=== PATIENT | female | born 1995 | race African-American/Black ===

== ENCOUNTER 2018-05-11 10:41 | Emergency (ER) | payer OTHER, SELFPAY ==
[2018-05-11 10:49] VITALS: BP 107/70; PULSE 70; RESP 14; TEMP 36.6; O2SAT 100; BMI 18.2
[2018-05-11 11:32] LABS: Add Manual Diff / Slide Review NO; Basophils Percent Auto 1.6 % (0-2); Eosinophils Percent Auto 0.6 % (2-4); Hematocrit 25.5 % (36-46); Hemoglobin 7.8 g/dL (12.0-16.0); Lymphocytes Percent Auto 41.4 % (25-40); Mean Corpuscular HGB Conc 30.6 % (30-36); Mean Corpuscular Hemoglobin 20.1 PG (26-34); Mean Corpuscular Volume 65.7 fL (80-100); Monocytes Percent Auto 9.9 % (3-14); Neutrophils Absolute Auto 1600 /uL (3000-5900); Neutrophils Percent Auto 46.5 % (50-75); Platelet Count 304 X10^3/uL (150-400); Red Blood Cell Count 3.89 X10^6/uL (4.0-5.2); Red Cell Distribution Width 17.7 % (11.6-14.8); White Blood Cell Count 3.5 X10^3/uL (4.5-11.0)
--- NOTE | 2018-05-11 11:36 | ED_ITS ---
HPI - Female Genitourinary General Chief complaint: Vaginal Bleeding Stated complaint: SPOTTING, UNCONTROLLABLE BLEEDING, NOT ON PERIOD Time Seen by Provider: 05/11/18 11:29 Source: patient Mode of arrival: ambulatory Limitations: no limitations History of Present Illness HPI Narrative: Patient is 23-year-old female who presents with vaginal bleeding. She had a felt finisher. From April 24 to April 28. His however yesterday she started bleeding again. 2 days ago she noticed some blood and spotting only when she wiped. She has minor discomfort with urination. However yesterday she has had quite heavy vaginal bleeding. Today she says it has slowed down. Last week she did notice some lightheadedness am bloating. She says that she does have a history of anemia. She and her are currently trying to get . However all test so far have been negative. Complaint: vaginal bleeding Related Data Previous Rx's Medication Instructions Recorded PNV [id number]-epa 1 cap PO DAILY #60 cap 05/11/18 cephalexin [Keflex] 500 mg PO TID #9 cap 05/11/18 Allergies Allergy/AdvReac Type Severity Reaction Status Date / Time No Known Drug Allergies Allergy Verified 05/11/18 10:53 Review of Systems Review of Systems All systems reviewed & are unremarkable except as noted in HPI and below Constitutional Denies chills, Denies fever(s), Denies lethargy and Denies weakness Cardiovascular Denies diaphoresis, Denies syncope, Denies rapid heart rate, Reports lightheadedness, Denies palpitations, Denies dyspnea and Denies dyspnea on exertion Respiratory Denies cough, Denies dyspnea, Denies dyspnea on exertion and Denies wheezing Gastrointestinal Gastrointestinal: Denies abdominal pain, Denies change in bowel habits, Denies diarrhea, Denies nausea and Denies vomiting Genitourinary Reports system reviewed and no additional complaints, except as docu Integumentary/Breasts Denies pruritus, Denies erythema, Denies rash and Denies wounds Neurologic Denies syncope and Denies weakness Endocrine Denies palpitations Allergic/Immunologic Denies wheezing [facility] Social History Smoking Status: Never smoker Exam Initial Vital Signs Initial Vital Signs: Vital Signs Temperature 97.8 F 05/11/18 10:49 Pulse Rate 70 05/11/18 10:49 Respiratory Rate 14 05/11/18 10:49 Blood Pressure 107/70 05/11/18 10:49 Pulse Oximetry 100 05/11/18 10:49 GENERAL: Well-appearing, well-nourished and in no acute distress. HEENT: Head atraumatic,EOMI, pupils reactive-mildly pale conjunctiva CARDIOVASCULAR: Regular rate and rhythm without murmurs, rubs or gallops. RESPIRATORY: Breath sounds equal bilaterally, no wheezes rales or rhonchi. ABDOMEN: Soft, nontender. Normoactive bowel sounds all 4 quadrants. No guarding or rebound. EXTREMITIES: Normal range of motion, no clubbing or edema. Neurovascularly intact NEUROLOGICAL: Alert and oriented x4.Normal gait and speech. Cranial nerves II through XII grossly intact. SKIN: Warm, dry, no laceration, no petechiae, no rashes or lesions. Course Orders Ordered: ED Orders 05/11/18 11:00 Test Urine Stat Urine Culture Stat Urine Microscopic Stat 05/11/18 11:12 Complete Blood Count AUTO DIFF Stat Comprehensive Metabolic Panel Stat Vital Signs - 8 hr 05/11/18 12:20 Pulse Rate 70 Respiratory Rate 12 Blood Pressure [Right Arm] 104/70 Pulse Oximetry 99 MDM - Female Genitourinary Medical Records Attestation: I reviewed the patient's medical records. Lab Data Attestation: I reviewed the patient's lab results. Result diagrams: 05/11/18 11:12 05/11/18 11:12 Lab Results 05/11/18 05/11/18 05/11/18 Range/Units 11:00 11:00 11:12 WBC 3.5 L (4.5-11.0) X10^3/uL RBC 3.89 L (4.0-5.2) X10^6/uL Hgb 7.8 L (12.0-16.0) g/dL Hct 25.5 L (36-46) % MCV 65.7 L (80-100) fL MCH 20.1 L (26-34) PG MCHC 30.6 (30-36) % RDW 17.7 H (11.6-14.8) % Plt Count 304 (150-400) X10^3/uL Neut % (Auto) 46.5 L (50-75) % Lymph % (Auto) 41.4 H (25-40) % [place] % (Auto) 9.9 (3-14) % Eos % (Auto) 0.6 L (2-4) % Baso % (Auto) 1.6 (0-2) % Neut # (Auto) 1600 L (4661-0330) /uL RBC Morphology Not Reportable Hypochromasia 2+ H Anisocytosis 1+ H Microcytosis 3+ H Sodium (137-145) mmol/L Potassium (3.4-5.1) mmol/L Chloride (98-107) mmol/L Carbon Dioxide (22-32) mmol/L BUN (7-17) mg/dL Creatinine (0.52-1.04) mg/dL Estimated GFR (>60) mL/min BUN/Creatinine Ratio (6-22) Glucose (70-100) mg/dL Calcium (8.4-10.2) mg/dL Total Bilirubin (0.2-1.3) mg/dL AST (14-36) IU/L ALT (9-52) IU/L Alkaline Phosphatase (38-126) U/L Total Protein (6.3-8.2) g/dL Albumin (3.5-5.0) g/dL Globulin (1.7-4.1) g/dL Albumin/Globulin Ratio (1.0-2.8) Urine RBC 10-30/hpf H (0-5/HPF) Urine WBC 0-1/hpf (0-5/HPF) Ur Squamous Epith Cells 5-10 /hpf H Amorphous Sediment 4+ Urine Bacteria Few (2-10) H (None) Ur Culture Indicated? Specimen cultured Micro UA Comment Not Reportable Urine Test Negative (Negative) 05/11/18 Range/Units 11:12 WBC (4.5-11.0) X10^3/uL RBC (4.0-5.2) X10^6/uL Hgb (12.0-16.0) g/dL Hct (36-46) % MCV (80-100) fL MCH (26-34) PG MCHC (30-36) % RDW (11.6-14.8) % Plt Count (150-400) X10^3/uL Neut % (Auto) (50-75) % Lymph % (Auto) (25-40) % [place] % (Auto) (3-14) % Eos % (Auto) (2-4) % Baso % (Auto) (0-2) % Neut # (Auto) (6663-7507) /uL RBC Morphology Hypochromasia Anisocytosis Microcytosis Sodium 140 (137-145) mmol/L Potassium 3.8 (3.4-5.1) mmol/L Chloride 107 (98-107) mmol/L Carbon Dioxide 23 (22-32) mmol/L BUN 11 (7-17) mg/dL Creatinine 0.60 (0.52-1.04) mg/dL Estimated GFR > 60.0 (>60) mL/min BUN/Creatinine Ratio 18.3 (6-22) Glucose 93 (70-100) mg/dL Calcium 9.1 (8.4-10.2) mg/dL Total Bilirubin 0.4 (0.2-1.3) mg/dL AST 13 L (14-36) IU/L ALT 13 (9-52) IU/L Alkaline Phosphatase 34 L (38-126) U/L Total Protein 7.6 (6.3-8.2) g/dL Albumin 4.3 (3.5-5.0) g/dL Globulin 3.3 (1.7-4.1) g/dL Albumin/Globulin Ratio 1.3 (1.0-2.8) Urine RBC (0-5/HPF) Urine WBC (0-5/HPF) Ur Squamous Epith Cells Amorphous Sediment Urine Bacteria (None) Ur Culture Indicated? Micro UA Comment Urine Test (Negative) MDM Narrative Medical decision making narrative: Patient is anemic it seems to be microcytic. I told her what her hemoglobin hematocrit were she says that found about right. She is not dizzy or lightheaded. I did not believe her anemia to be from her episode of bleeding yesterday. She is having some dysfunctional uterine bleeding of it seems to have slowed. I recommend outpatient follow-up along with repeat of her H&H. I discussed all findings with the patient, Education has been performed regarding treatment plan, diagnosis, warning signs and symptoms and all concerns have been addressed. Verbally agree with and understood all of the above. Discharge Plan Departure Patient Disposition: Home, Self-Care Clinical Impression: Anemia, UTI (urinary tract infection) Discharge Date/Time: 05/11/18 12:45 Interventions: ED Discharge Assessment Last Done: 05/11/18 12:45 Instructions: Urinary Tract Infection, Anemia Activity Restrictions/Additional Instructions: *You have been diagnosed with anemia and UTI *What to do: Will need to have repeat blood work and workup for anemia however this is likely always this way *Continue to take medications as directed - vitamins 1 once a day will also help with anemia -Keflex 1 tablet 3 times a day for 3 days At your request you're medications have been [facility] *Follow up with your primary care provider in 2-3 days *Return to ER if you should have dizziness, lightheadedness, increased bleeding more than 1 pad or tampon an hour or any new, worsening or concerning symptoms Prescriptions: New cephalexin [Keflex] 500 mg capsule 500 mg PO TID Qty: 9 RF: 0 PNV [id number]-epa 27 mg iron-800 mcg-228 mg capsule 1 cap PO DAILY Qty: 60 RF: 0
[2018-05-11 11:43] LABS: Amorphous Sediment Urine 4+; RBC Urine 10-30/HPF (0-5/HPF); Squamous Epithelial Cell Urine 5-10 /HPF; WBC Urine 0-1/HPF (0-5/HPF)
[2018-05-11 11:44] LABS: Bacteria Urine Few (2-10); Culture Indicated Urine Specimen Cultured
[2018-05-11 11:47] LABS: Alanine Aminotransferase 13 IU/L (9-52); Albumin 4.3 g/dL (3.5-5.0); Albumin Globulin Ratio 1.3 (1.0-2.8); Alkaline Phosphatase 34 U/L (38-126); Aspartate Aminotransferase 13 IU/L (14-36); BUN Creatinine Ratio 18.3 (6-22); Bilirubin Total 0.4 mg/dL (0.2-1.3); Blood Urea Nitrogen 11 mg/dL (7-17); Calcium 9.1 mg/dL (8.4-10.2); Carbon Dioxide 23 mmol/L (22-32); Chloride 107 mmol/L (98-107); Estimated Glomerular Filt Rate > 60.0 mL/min (>60); Globulin 3.3 g/dL (1.7-4.1); Glucose 93 mg/dL (70-100); HEMOLYSIS < 15 (0-50); Potassium 3.8 mmol/L (3.4-5.1); Sodium 140 mmol/L (137-145); Total Protein 7.6 g/dL (6.3-8.2)
[2018-05-11 11:54] LABS: Anisocytosis 1+; Hypochromasia 2+; Microcytosis 3+
[2018-05-11 12:20] VITALS: BP 104/70; PULSE 70; RESP 12; O2SAT 99
--- NOTE | 2018-05-11 12:43 | PC.NURSE ---
Discussed w/ patient importance of follow up. Pt is currently a pt of [facility] but has not established care yet. Called [facility] and left a message w/ clinic to call me.
--- NOTE | 2018-05-11 14:14 | PC.NURSE ---
Call back from Dr. Oswald office @ [facility]. Arranged appt for 05/16 @ [id number]. Pt called and aware / agreed. Dr. West's notes faxed to [phone]
[2018-05-11 18:44] LABS: Pregnancy Test Urine Negative (Negative)
== END 2018-05-11 12:45 | disposition home or self-care (01) ==
PROVIDERS: Emergency Provider Emergency Medicine
DX: N39.0 Urinary tract infection, site not specified (principal); D64.9 Anemia, unspecified
CPT/HCPCS: 36591; 80053; 81003; 81015; 81025; 85025; 87086; 99282; 99283

== ENCOUNTER 2018-08-15 13:04 | Emergency (ER) | payer OTHER, SELFPAY ==
[2018-08-15 13:25] VITALS: BP 122/84; PULSE 87; RESP 16; TEMP 36.8; O2SAT 98; BMI 18.2
[2018-08-15 14:28] VITALS: BP 111/75; PULSE 78; RESP 16; TEMP 36.7; O2SAT 98
[2018-08-15] MEDS: SODIUM CHLORIDE 0.9% 1,000 ML 150 ML IV (15:47)
--- NOTE | 2018-08-15 15:48 | ED.ABDPAIN ---
HPI - Abdominal Pain <UZIEL Mcdonnell - Last Filed: 08/15/18 22:11> General Chief Complaint: Abdominal Pain Stated Complaint: STOMACH PAIN FOR 3 WEEKS Time Seen by Provider: 08/15/18 19:10 Source: patient Mode of arrival: ambulatory Limitations: no limitations History of Present Illness HPI narrative: Healthy 23-year-old female that is a nonsmoker here for complaint of having suprapubic pain over the past 3 weeks. She also reports having vaginal discharge that is whitish since that timeframe. She denies any urinary symptoms. No fevers no chills. Positive p.o. intake. She denies any flank pain. She denies any stressors relievers of her pain. Denies any changes in her sexual partners she is in a a marriage and states is monogamous. she denies any other concerns or complaints. Related Data Home Medications Medication Instructions Recorded Confirmed ferrous sulfate 1 tab PO DAILY 08/15/18 08/15/18 Allergies Allergy/AdvReac Type Severity Reaction Status Date / Time No Known Drug Allergies Allergy Verified 08/15/18 13:31 Review of Systems <UZIEL Mcdonnell - Last Filed: 08/15/18 22:11> Constitutional Denies chills, Denies fever(s), Denies lethargy and Denies weakness Eyes Denies change in vision, Denies eye discharge, Denies irritation and Denies loss of vision Cardiovascular Denies chest pain, Denies irregular heart rhythm, Denies lightheadedness, Denies palpitations, Denies dyspnea, Denies dyspnea on exertion and Denies orthopnea Respiratory Denies cough, Denies dyspnea, Denies dyspnea on exertion and Denies wheezing Genitourinary Reports pelvic pain and Reports vaginal discharge Integumentary/Breasts Denies pruritus, Denies erythema, Denies rash and Denies wounds Neurologic Denies confusion, Denies loss of vision and Denies weakness Psychiatric Denies anxiety, Denies confusion, Denies depression, Denies homicidal ideation and Denies suicidal ideation Endocrine Denies palpitations Hematologic/Lymphatic Denies easy bruising Allergic/Immunologic Denies wheezing Exam <UZIEL Mcdonnell - Last Filed: 08/15/18 22:11> Initial Vital Signs Initial Vital Signs: Vital Signs Temperature 98.2 F 08/15/18 13:25 Pulse Rate 87 08/15/18 13:25 Respiratory Rate 16 08/15/18 13:25 Blood Pressure 122/84 08/15/18 13:25 Pulse Oximetry 98 08/15/18 13:25 Const General: cooperative and well developed Nutritional Appearance: well nourished Orientation: alert, awake, oriented x3 and not confused [facility] Mouth: oral mucosae normal and moist mucous membranes Eyes General: appearance normal, both eyes and all related structures Eyelids: eyelids normal Conjunctivae: conjunctivae normal Sclera: sclerae normal Pupils: PERRL EOM: EOM intact bilaterally Resp Effort & Inspection: normal respiratory effort, able to speak in complete sentences, no respiratory distress and no use of accessory muscles Auscultation: clear to auscultation bilaterally, no rales, no rhonchi and no wheezes Cardio Rate: regular rate Rhythm: regular rhythm Heart Sounds: no click, no gallops, no murmurs and no rubs GI Inspection: non-distended Palpation: soft, no hepatosplenomegaly, No guarding, No pulsatile mass and tender ( Suprapubic discomfort) Auscultation: normal bowel sounds General: No CVA tenderness Speculum Exam - Vagina: normal appearance of the vagina and abnormal vaginal discharge white Speculum Exam - Cervix: normal appearance of the cervix Bimanual Exam- Vagina & Uterus: normal bimanual exam Skin General: no rashes or lesions noted, No jaundice and No petechiae Neuro General: alert, oriented x3, gait normal and no focal motor deficits Speech: speech normal <Alba West DO - Last Filed: 08/16/18 22:23> Initial Vital Signs Initial Vital Signs: Vital Signs Temperature 98.2 F 08/15/18 13:25 Pulse Rate 87 08/15/18 13:25 Respiratory Rate 16 08/15/18 13:25 Blood Pressure 122/84 08/15/18 13:25 Pulse Oximetry 98 08/15/18 13:25 Course <UZIEL Mcdonnell - Last Filed: 08/15/18 22:11> Orders Ordered: Discontinued Medications Sodium Chloride (Normal Saline 0.9%) 1,000 mls @ 150 mls/hr IV CONT CHANA Last Infusion: 08/15/18 19:49 Dose: 0 mls/hr Admin: 08/15/18 15:47 Dose: 150 mls/hr Vital Signs - 8 hr 08/15/18 14:28 08/15/18 16:55 08/15/18 19:46 Temperature 98.1 F 98.6 F Pulse Rate 78 80 66 Respiratory Rate 16 15 Blood Pressure [Right Arm] 111/75 107/73 106/72 Pulse Oximetry 98 100 98 <Alba West DO - Last Filed: 08/16/18 22:23> Orders Ordered: Discontinued Medications Sodium Chloride (Normal Saline 0.9%) 1,000 mls @ 150 mls/hr IV CONT CHANA Last Infusion: 08/15/18 19:49 Dose: 0 mls/hr Admin: 08/15/18 15:47 Dose: 150 mls/hr Vital Signs - 8 hr 08/15/18 14:28 08/15/18 16:55 08/15/18 19:46 Temperature 98.1 F 98.6 F Pulse Rate 78 80 66 Respiratory Rate 16 15 Blood Pressure [Right Arm] 111/75 107/73 106/72 Pulse Oximetry 98 100 98 MDM - Abdominal Pain <UZIEL Mcdonnell - Last Filed: 08/15/18 22:11> Lab Data Result diagrams: 08/15/18 15:40 08/15/18 15:40 Lab Results 08/15/18 08/15/18 Range/Units 15:40 15:40 WBC 4.3 L (4.5-11.0) X10^3/uL RBC 4.31 (4.0-5.2) X10^6/uL Hgb 8.5 L (12.0-16.0) g/dL Hct 28.4 L (36-46) % MCV 65.8 L (80-100) fL MCH 19.8 L (26-34) PG MCHC 30.1 (30-36) % RDW 17.9 H (11.6-14.8) % Plt Count 388 (150-400) X10^3/uL Neut % (Auto) 49.1 L (50-75) % Lymph % (Auto) 40.3 H (25-40) % [place] % (Auto) 9.4 (3-14) % Eos % (Auto) 0.2 L (2-4) % Baso % (Auto) 1.0 (0-2) % Neut # (Auto) 2100 L (1003-8599) /uL RBC Morphology Not Reportable Hypochromasia 3+ H Anisocytosis 1+ H Microcytosis 3+ H Sodium 143 (137-145) mmol/L Potassium 3.9 (3.4-5.1) mmol/L Chloride 105 (98-107) mmol/L Carbon Dioxide 26 (22-32) mmol/L BUN 13 (7-17) mg/dL Creatinine 0.60 (0.52-1.04) mg/dL Estimated GFR > 60.0 (>60) mL/min BUN/Creatinine Ratio 21.7 (6-22) Glucose 87 (70-100) mg/dL Calcium 9.0 (8.4-10.2) mg/dL Total Bilirubin 0.3 (0.2-1.3) mg/dL AST 19 (14-36) IU/L ALT 17 (9-52) IU/L Alkaline Phosphatase 36 L (38-126) U/L Total Protein 8.0 (6.3-8.2) g/dL Albumin 4.6 (3.5-5.0) g/dL Globulin 3.4 (1.7-4.1) g/dL Albumin/Globulin Ratio 1.4 (1.0-2.8) Lipase 51 (23-300) U/L Point of care testing: Point of Care Testing Test Results Negative Urine Dip Bedside Urine Glucose Negative Bedside Urine Bilirubin - Negative Bedside Urine Ketone +/- 5 Urine Specific [place]enic 1.015 Bedside Urine Occult Blood - Negative Bedside Urine pH 8 Bedside Urine Protein +/- 15 Bedside Urine Urobilinogen 1+ 2mg Bedside Urine Nitrite - Negative Bedside Urine Leukocytes - Negative Esterase Imaging Data pelvic: Radiologist's impression: [address] [address] Ultrasound Report Signed Patient: Cait Luciano LMR#: [id number] : 1995Acct:[id number] Age/Sex: 23 / FDate of Service: 08/15/18 Loc: ED Accession Number: [id number] Procedure: US pelvic complete Ordering Provider: Nima Nguyen PROCEDURE: US PELVIC COMPLETE INDICATIONS: PAIN; VAGINAL DISCHARGE TECHNIQUE: Real-time scanning was performed of the pelvic organs, with image documentation. Additional endovaginal scanning was necessary due to incomplete visualization of the adnexal and endometrial structures by transabdominal scanning. COMPARISON: None. FINDINGS: Transabdominal scanning: Limited scanning through the kidneys shows no hydronephrosis. No pathologic free abdominal or pelvic fluid. Endovaginal scanning: Uterus: There is a bicornuate uterus. The right endometrial complex measures 17.4 mm in thickness and the left endometrial complex measures 9.4 mm in thickness. Ovaries: The right ovary measures 3.1 x 1.3 x 2.3 cm and has a normal echotexture. Left ovary is not visualized. IMPRESSION: 1. 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 No sonographic findings to explain pelvic pain or discharge. Dictated by: Suze Ewing M.D. on 08/15/2018 at 19:17 Approved by: Suze Ewing M.D. on 08/15/2018 at 19:20 MDM Narrative Medical decision making narrative: CBC shows mild anemia that is consistent with her prior lab values and is otherwise unremarkable. Chem panel were obtained and was Unremarkable. Urinalysis was negative for urinary tract infection and . Pelvic ultrasound was obtained was negative for any acute findings. Wet prep was obtained and was negative for clue cells or yeast. vaginal culture is pending. Doubtful PID as patient is not having significant abdominal pain and has negative increased white count. No emergent cause of her discomfort is seen will have follow up with primary care provider in the next few days for re-evaluation. [id number] ibuprofen as needed for any dis <Alba West, - Last Filed: 08/16/18 22:23> Lab Data Lab Results 08/15/18 08/15/18 Range/Units 15:40 15:40 WBC 4.3 L (4.5-11.0) X10^3/uL RBC 4.31 (4.0-5.2) X10^6/uL Hgb 8.5 L (12.0-16.0) g/dL Hct 28.4 L (36-46) % MCV 65.8 L (80-100) fL MCH 19.8 L (26-34) PG MCHC 30.1 (30-36) % RDW 17.9 H (11.6-14.8) % Plt Count 388 (150-400) X10^3/uL Neut % (Auto) 49.1 L (50-75) % Lymph % (Auto) 40.3 H (25-40) % [place] % (Auto) 9.4 (3-14) % Eos % (Auto) 0.2 L (2-4) % Baso % (Auto) 1.0 (0-2) % Neut # (Auto) 2100 L (3904-7455) /uL RBC Morphology Not Reportable Hypochromasia 3+ H Anisocytosis 1+ H Microcytosis 3+ H Sodium 143 (137-145) mmol/L Potassium 3.9 (3.4-5.1) mmol/L Chloride 105 (98-107) mmol/L Carbon Dioxide 26 (22-32) mmol/L BUN 13 (7-17) mg/dL Creatinine 0.60 (0.52-1.04) mg/dL Estimated GFR > 60.0 (>60) mL/min BUN/Creatinine Ratio 21.7 (6-22) Glucose 87 (70-100) mg/dL Calcium 9.0 (8.4-10.2) mg/dL Total Bilirubin 0.3 (0.2-1.3) mg/dL AST 19 (14-36) IU/L ALT 17 (9-52) IU/L Alkaline Phosphatase 36 L (38-126) U/L Total Protein 8.0 (6.3-8.2) g/dL Albumin 4.6 (3.5-5.0) g/dL Globulin 3.4 (1.7-4.1) g/dL Albumin/Globulin Ratio 1.4 (1.0-2.8) Lipase 51 (23-300) U/L Point of care testing: Point of Care Testing Test Results Negative Urine Dip Bedside Urine Glucose Negative Bedside Urine Bilirubin - Negative Bedside Urine Ketone +/- 5 Urine Specific [place] 1.015 Bedside Urine Occult Blood - Negative Bedside Urine pH 8 Bedside Urine Protein +/- 15 Bedside Urine Urobilinogen 1+ 2mg Bedside Urine Nitrite - Negative Bedside Urine Leukocytes - Negative Esterase Discharge Plan Departure Patient Disposition: Home Clinical Impression: Acute suprapubic pain Discharge Date/Time: 08/15/18 20:01 Interventions: ED Discharge Assessment Last Done: 08/15/18 20:01 Instructions: DI for Pelvic Pain Activity Restrictions/Additional Instructions: a laboratory results showed mild anemia which is consistent with her prior lab values. ultrasound of the pelvic region was negative for any acute findings. Other lab results were unremarkable. No emergent cause of pelvic pain is seen tonight. Follow up with primary care provider in the next few days for re-evaluation. Use [id number] Tylenol Motrin as needed for any discomfort. For any worsening symptoms return to the emergency room. Prescriptions: No Action ferrous sulfate 324 mg (65 mg iron) tablet,delayed release (DR/EC) 1 tab PO DAILY RF: 0 Referrals: [facility] [Provider Group] <Alba West, - Last Filed: 08/16/18 22:23> Cosign ED Attending Alejoature Attestation: I was immediately available in the department for consultation. Documentation has been reviewed. I agree with assessment and plan.
[2018-08-15 15:56] LABS: Add Manual Diff / Slide Review NO; Eosinophils Percent Auto 0.2 % (2-4); Hematocrit 28.4 % (36-46); Hemoglobin 8.5 g/dL (12.0-16.0); Lymphocytes Percent Auto 40.3 % (25-40); Mean Corpuscular HGB Conc 30.1 % (30-36); Mean Corpuscular Hemoglobin 19.8 PG (26-34); Mean Corpuscular Volume 65.8 fL (80-100); Monocytes Percent Auto 9.4 % (3-14); Neutrophils Absolute Auto 2100 /uL (3000-5900); Neutrophils Percent Auto 49.1 % (50-75); Platelet Count 388 X10^3/uL (150-400); Red Blood Cell Count 4.31 X10^6/uL (4.0-5.2); Red Cell Distribution Width 17.9 % (11.6-14.8); White Blood Cell Count 4.3 X10^3/uL (4.5-11.0)
[2018-08-15 16:03] LABS: Alanine Aminotransferase 17 IU/L (9-52); Albumin 4.6 g/dL (3.5-5.0); Albumin Globulin Ratio 1.4 (1.0-2.8); Alkaline Phosphatase 36 U/L (38-126); Aspartate Aminotransferase 19 IU/L (14-36); BUN Creatinine Ratio 21.7 (6-22); Bilirubin Total 0.3 mg/dL (0.2-1.3); Blood Urea Nitrogen 13 mg/dL (7-17); Carbon Dioxide 26 mmol/L (22-32); Chloride 105 mmol/L (98-107); Estimated Glomerular Filt Rate > 60.0 mL/min (>60); Globulin 3.4 g/dL (1.7-4.1); Glucose 87 mg/dL (70-100); HEMOLYSIS 19 (0-50); Lipase 51 U/L (23-300); Potassium 3.9 mmol/L (3.4-5.1); Sodium 143 mmol/L (137-145)
[2018-08-15 16:35] LABS: Anisocytosis 1+; Hypochromasia 3+; Microcytosis 3+
--- NOTE | 2018-08-15 16:38 | DI.US.S_ITS ---
PROCEDURE: US PELVIC COMPLETE INDICATIONS: PAIN; VAGINAL DISCHARGE TECHNIQUE: Real-time scanning was performed of the pelvic organs, with image documentation. Additional endovaginal scanning was necessary due to incomplete visualization of the adnexal and endometrial structures by transabdominal scanning. COMPARISON: None. FINDINGS: Transabdominal scanning: Limited scanning through the kidneys shows no hydronephrosis. No pathologic free abdominal or pelvic fluid. Endovaginal scanning: Uterus: There is a bicornuate uterus. The right endometrial complex measures 17.4 mm in thickness and the left endometrial complex measures 9.4 mm in thickness. Ovaries: The right ovary measures 3.1 x 1.3 x 2.3 cm and has a normal echotexture. Left ovary is not visualized. IMPRESSION: 1. 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 No sonographic findings to explain pelvic pain or discharge. Dictated by: Suze Ewing M.D. on 08/15/2018 at 19:17 Approved by: Suze Ewing M.D. on 08/15/2018 at 19:20
[2018-08-15 16:55] VITALS: BP 107/73; PULSE 80; O2SAT 100
[2018-08-15 19:46] VITALS: BP 106/72; PULSE 66; RESP 15; TEMP 37; O2SAT 98
== END 2018-08-15 20:01 | disposition home or self-care (01) ==
PROVIDERS: Emergency Medicine; Emergency Provider Nurse Practitioner Family
DX: R10.2 Pelvic and perineal pain (principal)
CPT/HCPCS: 36591; 76830; 76856; 80053; 81003; 81025; 83690; 85025; 87070; 87205; 87210; 96360; 96361; 99283; 99284